=== PATIENT | male | born 1990 | race American Indian/Alaskan Native ===

== ENCOUNTER 2016-08-29 06:54 | Emergency (ER) | payer MEDICAID ==
[2016-08-29 06:56] VITALS: BMI 26.4
[2016-08-29 07:14] VITALS: BP 129/59; PULSE 66; RESP 16; TEMP 97.6; O2SAT 99
--- NOTE | 2016-08-29 07:28 | ED PDOC ---
Arrival/HPI - General Chief Complaint: Eye Problem Time Seen by Provider: 08/29/16 07:12 Historian: Patient - History of Present Illness Narrative History of Present Illness (Text): 08/29/16 07:25 25 year old male presents to the emergency department with bilateral eye injection that he woke up with this morning. Patient states he was treated for "pinkeye" 10 days ago which improved after antibiotic eye drops. Patient states he woke up this morning and noticed his eyes were red bilaterally. He states he is no longer wearing contacts. No other complaints at this time. Symptom Onset: Sudden Symptom Course: Unchanged Modifying Factors (Text): None Associated Symptoms (Text): None Past Medical History - Provider Review Nursing Documentation Reviewed: Yes - Past History Past History: Non-Contributing - Infectious Disease Hx of Infectious Diseases: None - Psychiatric Hx Depression: No Hx Emotional Abuse: No Hx Physical Abuse: No Hx Substance Use: No - Surgical History Hx Orthopedic Surgery: Yes (right knee) - Anesthesia Hx Anesthesia: Yes - Suicidal Assessment Feels Threatened In Home Enviroment: No Family/Social History - Physician Review Nursing Documentation Reviewed: Yes Family/Social History: Unknown Family HX Smoking Status: Light Smoker < 10 Cigarettes Daily Hx Alcohol Use: Yes Hx Substance Use: No Allergies/Home Meds Allergies/Adverse Reactions: Allergies No Known Allergies Allergy (Verified 01/06/12 02:38) Review of Systems - Review of Systems Constitutional: absent: Fevers Eyes: Other (bilateral eye redness) ENT: absent: Hearing Changes, Epistaxis Respiratory: absent: SOB, Cough Skin: absent: Rash Neurological: absent: Headache, Dizziness Endocrine: absent: Diaphoresis Physical Exam Vital Signs Reviewed: Yes Vital Signs Temp Pulse Resp BP Pulse Ox 08/29/16 07:10 97.6 F 66 16 129/59 L 99 Temperature: Afebrile Blood Pressure: Normal Pulse: Regular Respiratory Rate: Normal Appearance: Positive for: Well-Appearing, Non-Toxic, Comfortable Pain Distress: None Mental Status: Positive for: Alert and Oriented X 3 - Systems Exam Head: Present: Atraumatic, Normocephalic Pupils: Present: PERRL Conjunctiva: Present: Injected (bilaterally), Other (Limbal sparing) Mouth: Present: Moist Mucous Membranes Neck: Present: Normal Range of Motion Upper Extremity: Present: Normal Inspection. No: Cyanosis, Edema Neurological: Present: GCS=15, CN II-XII Intact, Speech Normal Skin: Present: Warm, Dry, Normal Color. No: Rashes Psychiatric: Present: Alert, Oriented x 3, Normal Insight, Normal Concentration Medical Decision Making ED Course and Treatment: Impression: 25 year old male presents to the emergency department with bilateral eye injection that he woke up with this morning. Differential Diagnosis include but are not limited to: Conjunctivitis Plan: -- Discharge with Ciprofloxacin Progress Notes: Patient in agreement with plan to discharged home. Patient is stable for discharge. Patient was instructed to follow up with physician/clinic in 1-2 days or return if symptoms worsen or new concerning symptoms arise. 08/29/16 07:55 pt did not have corrective lenses during visual acuity - Scribe Statement The provider has reviewed the documentation as recorded by the Silvio Llamas Provider Scribe Attestation: All medical record entries made by the Scribe were at my direction and personally dictated by me. I have reviewed the chart and agree that the record accurately reflects my personal performance of the history, physical exam, medical decision making, and the department course for this patient. I have also personally directed, reviewed, and agree with the discharge instructions and disposition. Disposition/Present on Arrival - Present on Arrival Any Indicators Present on Arrival: No History of DVT/PE: No History of Uncontrolled Diabetes: No Urinary Catheter: No History of Decub. Ulcer: No History Surgical Site Infection Following: None - Disposition Have Diagnosis and Disposition been Completed?: Yes Diagnosis: Conjunctivitis Disposition: HOME/ ROUTINE Disposition Time: 07:32 Patient Problems: Current Active Problems Problem Status Onset Conjunctivitis Acute Condition: STABLE Discharge Instructions (ExitCare): Conjunctivitis (ED) Additional Instructions: please see specialist and your pmd. return to er with worsening symptoms or concerns. Prescriptions: Ciprofloxacin 0.3% [Ciloxan 0.3% Ophth SOLN] 2 drop BOTHEYES Q4 #1 bottle Referrals: [facility] [Outside] - Follow up with primary Philipp Poole [Staff Provider] - Follow up with primary
== END 2016-08-29 08:04 | disposition home or self-care (01) ==
LOC: ED 06:54
DX: H10.9 Unspecified conjunctivitis (principal)

== ENCOUNTER 2016-09-16 11:56 | Emergency (ER) | payer MEDICAID ==
[2016-09-16 12:24] VITALS: RESP 18; TEMP 98.6; O2SAT 97; BMI 28.8
--- NOTE | 2016-09-16 13:08 | ED PDOC ---
Arrival/HPI - General Chief Complaint: Abnormal Skin Integrity Time Seen by Provider: 09/16/16 12:56 Historian: Patient - History of Present Illness Narrative History of Present Illness (Text): 09/16/16 13:00 Khadijah Walker is a 25 year old male, whose past medical history includes gonorrhea, who presents to the emergency department complaining of a testicular scab and reddening on shaft of penis for 3-4 days. Patient states that he noticed a scab on the shaft of his penis 4 days ago and began reddening since. Patient denies any pain or discharge or any other complaint at this time. PMD: Dr. Rae Time/Duration: < week Symptom Onset: Gradual Symptom Course: Unchanged Activities at Onset: Light Context: Home Past Medical History - Provider Review Nursing Documentation Reviewed: Yes - Past History Past History: Non-Contributing - Infectious Disease Hx of Infectious Diseases: None - Musculoskeletal/Rheumatological Other/Comment: Right side rotated cuff - Gastrointestinal Hx Gastrointestinal Disorders: No - Psychiatric Hx Depression: No Hx Emotional Abuse: No Hx Physical Abuse: No Hx Substance Use: No - Surgical History Hx Orthopedic Surgery: Yes (right knee) - Anesthesia Hx Anesthesia: Yes - Suicidal Assessment Feels Threatened In Home Enviroment: No Family/Social History - Physician Review Nursing Documentation Reviewed: Yes Family/Social History: No Known Family HX Smoking Status: Light Smoker < 10 Cigarettes Daily Hx Alcohol Use: Yes Frequency of alcohol use: Socially Hx Substance Use: No Allergies/Home Meds Allergies/Adverse Reactions: Allergies No Known Allergies Allergy (Verified 01/06/12 02:38) Physical Exam - Physical Exam Narrative Physical Exam (Text): - Review of Systems Constitutional: Normal. absent: Fatigue, Weight Change, Fevers Eyes: Normal ENT: Normal Respiratory: Normal absent: SOB, Cough, Sputum Cardiovascular: Normal absent: Chest pain, Palpitations, Syncope Gastrointestinal: Normal absent: Abdominal pain, Diarrhea, Nausea, Vomiting Genitourinary: Testicular scab. absent: Dysuria, Frequency, Hematuria Musculoskeletal: Normal. absent: Arthralgias, Back Pain, Neck Pain Skin: Normal Neurological: Normal absent: Focal Weakness Endocrine: Normal Hemo/Lymphatic: Normal Psychiatric: Normal - Physical exam Patient appears age appropriate, speaking full sentences without difficulty - Systems Exam Head: Present: Atraumatic, Normocephalic Pupils: Present: PERRL Extraocular Muscles: Present: EOMI Conjunctiva: Present: Normal Mouth: Present: Moist Mucous Membranes Neck: Present: Normal Range of Motion. No: MIDLINE TENDERNESS, Paraspinal Tenderness Respiratory/Chest: Present: Clear to Auscultation, Good Air Exchange. No: Respiratory Distress, Accessory Muscle Use, Tachypnic Cardiovascular: Present: Regular Rate and Rhythm, Normal S1, S2, Peripheral Pulses Present. No: Murmurs Abdomen: Present: Normal Bowel Sounds, No: Tenderness, Peritoneal Signs, Rebound, Guarding, Distention Back: Present: Normal Inspection. No: Midline Tenderness, Paraspinal Tenderness Upper Extremity: Present: Normal Inspection. No: Cyanosis, Edema Lower Extremity: Present: Normal Inspection. No: Edema Genitourinary: Testicle unremarkable. Less than 5 mm, non-tender lesion on penile head. Isela scribe present during examination. Neurological: Present: GCS=15, Speech Normal, cranial nerves II through XII fully intact with no cerebellar abnormality, neuro-sensory fully intact. No focal neurological deficits. Skin: Present: Warm, Dry, Normal Color. No: Rashes Lymphatic: Present: OX3, NI, NC Psychiatric: Present: Alert, Oriented x 3, Normal Insight, Normal Concentration Vital Signs Reviewed: Yes Vital Signs Temp Pulse Resp BP Pulse Ox 09/16/16 13:32 67 18 128/69 97 09/16/16 12:19 98.6 F 65 18 131/71 97 Temperature: Afebrile Blood Pressure: Normal Pulse: Regular Respiratory Rate: Normal Appearance: Positive for: Well-Appearing, Non-Toxic, Comfortable Pain Distress: None Mental Status: Positive for: Alert and Oriented X 3 Medical Decision Making ED Course and Treatment: 09/16/16 13:00 Impression: 25 year old male complaining of a penile non-tender lesion. Differential Diagnosis included but are not limited to: STD vs. Syphilis Plan: -- Chlamydia/GC RNA -- Syphilis -- RPR -- Reassess and disposition Prior Visits: Notes and results from previous visits were reviewed. Patient last seen in the ED on 08/29/16 for blurry vision that day. Patient was discharged home. Progress Notes: 09/16/16 13:31 Patient discharged home, instructed to follow up Thursday for results. Patient was lectured on safe-sex practices. Pt states he understands to return to the ER right away for new or worsening symptoms or for inability to f/u with PMD or specialist as instructed. Patient states that he fully agrees with and understands discharge instructions. States that he agrees with the plan and disposition. Verbalized and repeated discharge instructions and plan. I have given the patient opportunity to ask any additional questions. - Scribe Statement The provider has reviewed the documentation as recorded by the Micaelaibe Isela Swift Provider Scribe Attestation: All medical record entries made by the Scribe were at my direction and personally dictated by me. I have reviewed the chart and agree that the record accurately reflects my personal performance of the history, physical exam, medical decision making, and the department course for this patient. I have also personally directed, reviewed, and agree with the discharge instructions and disposition. Disposition/Present on Arrival - Present on Arrival Any Indicators Present on Arrival: No History of DVT/PE: No History of Uncontrolled Diabetes: No Urinary Catheter: No History of Decub. Ulcer: No History Surgical Site Infection Following: None - Disposition Have Diagnosis and Disposition been Completed?: Yes Diagnosis: Penile lesion Disposition: HOME/ ROUTINE Disposition Time: 13:05 Patient Plan: Discharge Condition: GOOD Discharge Instructions (ExitCare): Safe Sex (ED) Additional Instructions: PLEASE REPORT TO THE ER THIS UPCOMING THURSDAY TO THE ER FOR YOUR TEST RESULTS FOLLOW UP IN 1-2 DAYS WITH A SPECIALIST RETURN FOR NEW OR WORSENING SYMPTOMS OR IF YOU CANNOT FOLLOW UP INSTRUCTED Referrals: Alvino Talbot MD [Staff Provider] - Follow up with primary Doron Miller MD [Staff Provider] - Follow up with primary
[2016-09-16 13:33] VITALS: BP 128/69; PULSE 67
== END 2016-09-16 14:05 | disposition home or self-care (01) ==
LOC: ED 11:56
DX: N48.89 Other specified disorders of penis (principal)

== ENCOUNTER 2017-10-05 12:22 | Emergency (ER) | payer MEDICAID ==
[2017-10-05 12:22] VITALS: BMI 28.8
--- NOTE | 2017-10-05 13:09 | ED PDOC ---
Arrival/HPI - General Chief Complaint: Upper Extremity Problem/Injury Time Seen by Provider: 10/05/17 12:59 Historian: Patient - History of Present Illness Narrative History of Present Illness (Text): 10/05/17 13:06 26yo male with no pmhx who present to ED with complaint of right shoulder pain x 2years. 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 States he was given Oxycodone by his PMD and it wasn't helping so he changed it to a stronger pain medication and it still didn't help. Notes that he ran out of the medication weeks now and his PMD is trying to find him orthopedist that accepts his insurance. He denies any recent trauma, focal weakness, paresthesia, chest pain, any other complaint. Past Medical History - Provider Review Nursing Documentation Reviewed: Yes - Past History Past History: Non-Contributing - Infectious Disease Hx of Infectious Diseases: None - Cardiac Hx Cardiac Disorders: No - Pulmonary Hx Respiratory Disorders: No - Neurological Hx Neurological Disorder: No - HEENT Hx HEENT Disorder: No - Renal Hx Renal Disorder: No - Endocrine/Metabolic Hx Endocrine Disorders: No - Hematological/Oncological Hx Blood Disorders: No - Integumentary Hx Dermatological Disorder: No - Musculoskeletal/Rheumatological Hx Musculoskeletal Disorders: Yes Other/Comment: Right side rotated cuff - Gastrointestinal Hx Gastrointestinal Disorders: No - Genitourinary/Gynecological Hx Genitourinary Disorders: No - Psychiatric Hx Psychophysiologic Disorder: No Hx Substance Use: No - Surgical History Hx Orthopedic Surgery: Yes (right knee, R ELBOW) - Anesthesia Hx Anesthesia: Yes - Suicidal Assessment Feels Threatened In Home Enviroment: No Family/Social History - Physician Review Nursing Documentation Reviewed: Yes Family/Social History: Unknown Family HX Smoking Status: Light Smoker < 10 Cigarettes Daily Hx Alcohol Use: Yes Frequency of alcohol use: Socially Hx Substance Use: No Allergies/Home Meds Allergies/Adverse Reactions: Allergies No Known Allergies Allergy (Verified 01/06/12 02:38) Review of Systems - Physician Review All systems were reviewed & negative as marked: Yes - Review of Systems Constitutional: Normal Eyes: Normal ENT: Normal Respiratory: Normal Cardiovascular: Normal Gastrointestinal: Normal Genitourinary Male: Normal Musculoskeletal: Arthralgias (right shoulder pain) Skin: Normal Neurological: Normal Endocrine: Normal Hemo/Lymphatic: Normal Psychiatric: Normal Physical Exam Vital Signs Reviewed: Yes Vital Signs Temp Pulse Resp BP Pulse Ox 10/05/17 12:45 98.5 F 58 L 17 119/74 98 Temperature: Afebrile Blood Pressure: Normal Pulse: Regular Respiratory Rate: Normal Appearance: Positive for: Well-Appearing, Non-Toxic, Comfortable Pain Distress: None Mental Status: Positive for: Alert and Oriented X 3 - Systems Exam Head: Present: Atraumatic, Normocephalic Pupils: Present: PERRL Extroacular Muscles: Present: EOMI Conjunctiva: Present: Normal Mouth: Present: Moist Mucous Membranes Neck: Present: Normal Range of Motion Respiratory/Chest: Present: Clear to Auscultation, Good Air Exchange. No: Respiratory Distress, Accessory Muscle Use Cardiovascular: Present: Regular Rate and Rhythm, Normal S1, S2. No: Murmurs Abdomen: No: Tenderness, Distention, Peritoneal Signs Back: Present: Normal Inspection Upper Extremity: Present: Normal ROM (with pain on full abduction), NORMAL PULSES, Neurovascularly Intact, Capillary Refill < 2s. No: Cyanosis, Edema, Tenderness, Swelling, Erythema, Temperature Abnormalties, Deformity Lower Extremity: Present: Normal Inspection. No: Edema Neurological: Present: GCS=15, CN II-XII Intact, Speech Normal Skin: Present: Warm, Dry, Normal Color. No: Rashes Psychiatric: Present: Alert, Oriented x 3, Normal Insight, Normal Concentration Medical Decision Making - Medication Orders Current Medication Orders: Discontinued Medications Ketorolac Tromethamine (Toradol) 60 mg IM STAT STA Stop: 10/05/17 13:05 Disposition/Present on Arrival - Present on Arrival Any Indicators Present on Arrival: No History of DVT/PE: No History of Uncontrolled Diabetes: No Urinary Catheter: No History of Decub. Ulcer: No History Surgical Site Infection Following: None - Disposition Have Diagnosis and Disposition been Completed?: Yes Diagnosis: Shoulder pain Disposition: HOME/ ROUTINE Disposition Time: 13:15 Patient Plan: Discharge Patient Problems: Current Active Problems Problem Status Onset Shoulder pain Acute Condition: STABLE Discharge Instructions (ExitCare): Shoulder Pain (DC) Additional Instructions: Follow up with Orthopedist Return to ED for any new or worsening symptoms Prescriptions: Naproxen [Naprosyn] 500 mg PO BID #20 tablet Referrals: Zia Lazaro MD [Primary Care Provider] - Follow up with primary Mihai Gramajo MD [Staff Provider] - Follow up with primary Forms: [employer] ([place])
[2017-10-05 13:29] VITALS: BP 120/72; PULSE 62; RESP 18; TEMP 98.2; O2SAT 100
== END 2017-10-05 13:27 | disposition home or self-care (01) ==
LOC: ED 12:22
DX: M25.511 Pain in right shoulder (principal)
CPT/HCPCS: 96372; 99283; J1885

== ENCOUNTER 2017-11-29 00:42 | Emergency (ER) | payer MEDICAID ==
--- NOTE | 2017-11-29 01:54 | ED PDOC ---
Arrival/HPI - General Time Seen by Provider: 11/29/17 01:47 Historian: Patient - History of Present Illness Narrative History of Present Illness (Text): 11/29/17 01:54 Khadijah Walker is a 27 year old male who presents to the emergency department complaining of hernandez to his right hand. 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 Patient states he had a few blisters on his right hand which he popped. Patient reports some discomfort to the area, but otherwise denies any weakness/numbness/tingling in the extremity, decreased range of motion, or any other complaints. Time/Duration: 4-6 hours Symptom Onset: Sudden Symptom Course: Unchanged Context: Standing, Home Past Medical History - Provider Review Nursing Documentation Reviewed: Yes - Past History Past History: Non-Contributing - Infectious Disease Hx of Infectious Diseases: None - Cardiac Hx Cardiac Disorders: No - Pulmonary Hx Respiratory Disorders: No - Neurological Hx Neurological Disorder: No - HEENT Hx HEENT Disorder: No - Renal Hx Renal Disorder: No - Endocrine/Metabolic Hx Endocrine Disorders: No - Hematological/Oncological Hx Blood Disorders: No - Integumentary Hx Dermatological Disorder: No - Musculoskeletal/Rheumatological Hx Musculoskeletal Disorders: Yes Other/Comment: Right side rotated cuff - Gastrointestinal Hx Gastrointestinal Disorders: No - Genitourinary/Gynecological Hx Genitourinary Disorders: No - Psychiatric Hx Psychophysiologic Disorder: No Hx Substance Use: No - Surgical History Hx Orthopedic Surgery: Yes (right knee) - Anesthesia Hx Anesthesia: Yes - Suicidal Assessment Feels Threatened In Home Enviroment: No Family/Social History - Physician Review Nursing Documentation Reviewed: Yes Family/Social History: Unknown Family HX Smoking Status: Light Smoker < 10 Cigarettes Daily Hx Alcohol Use: Yes Hx Substance Use: No Allergies/Home Meds Allergies/Adverse Reactions: Allergies No Known Allergies Allergy (Verified 11/29/17 01:54) Review of Systems - Physician Review All systems were reviewed & negative as marked: Yes - Review of Systems Constitutional: Normal. absent: Fevers Eyes: Normal ENT: Normal Respiratory: Normal. absent: SOB, Cough Cardiovascular: Normal. absent: Chest Pain Gastrointestinal: Normal. absent: Abdominal Pain, Diarrhea, Nausea, Vomiting, Food Intolerance Genitourinary Male: Normal. absent: Dysuria, Frequency, Hematuria, Urinary Output Changes Musculoskeletal: Normal. absent: Back Pain, Neck Pain Skin: Other (+hernandez to right hand). absent: Rash Neurological: Normal. absent: Headache, Dizziness Endocrine: Normal Hemo/Lymphatic: Normal Psychiatric: Normal Physical Exam Vital Signs Reviewed: Yes Vital Signs Temp Pulse Resp BP Pulse Ox 11/29/17 01:54 97.3 F L 88 18 135/78 98 Temperature: Afebrile Blood Pressure: Normal Pulse: Regular Respiratory Rate: Normal Appearance: Positive for: Well-Appearing, Non-Toxic, Comfortable Pain Distress: None Mental Status: Positive for: Alert and Oriented X 3 - Systems Exam Head: Present: Atraumatic, Normocephalic Pupils: Present: PERRL Extroacular Muscles: Present: EOMI Conjunctiva: Present: Normal Mouth: Present: Moist Mucous Membranes Neck: Present: Normal Range of Motion Upper Extremity: Present: Other (1st degree hernandez to dorsum of right hand, with a couple of small discrete less than 2mm 2nd degree blisters/hernandez). No: Cyanosis, Edema Lower Extremity: Present: Normal Inspection. No: Edema Neurological: Present: GCS=15, CN II-XII Intact, Speech Normal Skin: Present: Warm, Dry, Normal Color. No: Rashes Psychiatric: Present: Alert, Oriented x 3, Normal Insight, Normal Concentration Medical Decision Making ED Course and Treatment: 11/29/17 01:54 Impression: 27 year old male complaining of hernandez to right hand. Plan: -- Silvadene -- Percocet -- Reassess and disposition Progress Notes: - Medication Orders Current Medication Orders: Discontinued Medications Ketorolac Tromethamine (Toradol) 60 mg IM ONCE ONE Stop: 11/29/17 03:02 Oxycodone/Acetaminophen (Percocet 5/325 Mg Tab) 1 tab PO STAT STA Stop: 11/29/17 01:59 Last Admin: 11/29/17 02:45 Dose: 1 tab [facility] Pain Assessment Document 11/29/17 02:45 ELISE (Rec: 11/29/17 03:19 ELISE [id number]) Pain Reassessment Is this a pain reassessment? Yes Description Pain Behavior Moaning Irritability Silver Sulfadiazine (Silvadene 1% 25 Gm) 0 gm TP STAT STA Stop: 11/29/17 02:04 Last Admin: 11/29/17 03:19 Dose: 1 gm - Scribe Statement The provider has reviewed the documentation as recorded by the Silvio Zimmerman Provider Scribe Attestation: All medical record entries made by the Scribe were at my direction and personally dictated by me. I have reviewed the chart and agree that the record accurately reflects my personal performance of the history, physical exam, medical decision making, and the department course for this patient. I have also personally directed, reviewed, and agree with the discharge instructions and disposition. Disposition/Present on Arrival - Present on Arrival Any Indicators Present on Arrival: No History of DVT/PE: No History of Uncontrolled Diabetes: No Urinary Catheter: No History Surgical Site Infection Following: None - Disposition Have Diagnosis and Disposition been Completed?: Yes Diagnosis: First degree burn of hand Disposition: HOME/ ROUTINE Disposition Time: 03:59 Patient Plan: Discharge Condition: GOOD Discharge Instructions (ExitCare): Skin Hernandez (DC) Additional Instructions: Use medication as prescribed/follow up with your doctor this week Prescriptions: oxyCODONE/Acetaminophen [Percocet 5/325 mg Tab] 1 ea PO Q6 PRN #10 tab PRN Reason: Pain, Moderate (4-7) Silver Sulfadiazine 1% [Silver Sulfadiazine] 1 appl TP DAILY #1 jar
[2017-11-29 01:55] VITALS: RESP 18; BMI 29.8
[2017-11-29] MEDS ORDERED: Oxycodone/Acetaminophen 5/325 mg Tab PO STA (01:58)
[2017-11-29] MEDS ORDERED: Silver Sulfadiazine 1% Cream (25 gm) TP STA (02:03)
[2017-11-29 07:58] VITALS: BP 130/62; PULSE 82; TEMP 97.4; O2SAT 100
== END 2017-11-29 04:10 | disposition home or self-care (01) ==
LOC: ED 00:42
DX: T23.101A Burn of first degree of right hand, unspecified site, initial encounter (principal); X08.8XXA Exposure to other specified smoke, fire and flames, initial encounter; Y92.89 Other specified places as the place of occurrence of the external cause
CPT/HCPCS: 16020; 96372; 99284; J1885